=== PATIENT | female | born 1995 | race Caucasian/White ===

== ENCOUNTER 2019-09-22 10:21 | Emergency (ER) | payer BC ==
--- NOTE | 2019-09-22 11:44 | EDM.PDOC ---
ED HPI GENERAL MEDICAL PROBLEM - General Chief Complaint: Head Injury Stated Complaint: HEAD INJURY Time Seen by Provider: 09/22/19 11:08 Source of Information: Reports: Patient, RN Notes Reviewed History Limitations: Reports: No Limitations - History of Present Illness INITIAL COMMENTS - FREE TEXT/NARRATIVE: Patient is a 24-year-old female who presents to the ED with family members for the evaluation of a head injury. Patient notes that around 8:00 last night, she slipped and fell on the ice. She notes that she slipped backwards and hit the back of her head, and her back on the ice. She denies any loss of consciousness or blacking out. There is no bleeding noted as well. She is not complaining of any sort of pain or injuries. Today she is complaining of this inability to not concentrate, or focus, with a lot of fatigue that she does not normally have. She denies any nausea or vomiting or headache, or blurred or double vision. Patient does note some mild lower right rib cage pain, or upper abdominal pain, that is sharp if she bends over. She noticed that this morning directly when she woke up. She did not take any sort of pain medications for this. 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 Denies: Fever, Chills Respiratory: Denies: Shortness of Breath Cardiovascular: Reports: Chest Pain (R lower rib cage/R upper abdominal) GI/Abdominal: Reports: Abdominal Pain (R upper abdominal pain). Denies: Nausea , Vomiting Musculoskeletal: Denies: Neck Pain, Shoulder Pain, Arm Pain, Back Pain Neurological: Denies: Confusion, Headache, Syncope, Trouble Speaking, Difficulty Walking ED EXAM, HEAD INJURY - Physical Exam Exam: See Below Exam Limited By: No Limitations General Appearance: Alert, WD/WN, No Apparent Distress Head: Atraumatic, Normocephalic Nexus Criteria: No: Posterior, Midline Cervical Tenderness, Evidence of Intoxication, Altered Level of Consciousness, Focal Neurological Deficit, Painful Distraction Injuries Eyes: Bilateral Eye: EOMI, Normal Inspection, PERRL Ears: Normal External Exam, Normal Canal, Hearing Grossly Normal, Normal TMs Nose: Normal Inspection Throat/Mouth: Normal Inspection, Normal Lips, Normal Teeth, Normal Gums, Normal Oropharynx, Normal Voice, No Airway Compromise Neck: Non-Tender, Full Range of Motion, Normal Alignment, Normal Inspection Respiratory: No Respiratory Distress, Lungs Clear, Normal Breath Sounds, No Accessory Muscle Use, Chest Non-Tender Cardiovascular: Normal Peripheral Pulses, Regular Rate, Rhythm, No Murmur GI/Abdominal Exam: Normal Bowel Sounds, Soft, Non-Tender, No Distention, No Mass Extremities: Normal Inspection, Normal Capillary Refill 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 As Tested, No Motor/Sensory Deficits, Alert, Normal Mood/Affect, Oriented x 3 Skin: Normal Color, Warm/Dry - [place] Coma Score Best Eye Response ([facility]ria): (4) Open Spontaneously Best Verbal Response ([place]): (5) Oriented Best Motor Response ([place]): (6) Obeys Commands A[place] Total: 15 Course - Vital Signs Last Recorded V/S: Last Vital Signs Temp 97.6 F 09/22/19 10:30 Pulse 81 09/22/19 10:30 Resp 18 09/22/19 10:30 BP 136/76 09/22/19 10:30 Pulse Ox 99 09/22/19 10:30 - Re-Assessments/Exams Free Text/Narrative Re-Assessment/Exam: 09/22/19 11:40 Patient presents to the ED for evaluation of a head injury. Clinically she is suffering from concussion. I believe that the right lower rib cage/upper abdominal pain is more musculoskeletal in nature, it is reproduced on palpation of the lower chest. We will have her follow general conservative recommendations and discharge home at this time. Departure - Departure Time of Disposition: 11:40 Disposition: Home, Self-Care 01 Clinical Impression: Post concussion syndrome, Musculoskeletal strain - Discharge Information *PRESCRIPTION DRUG MONITORING PROGRAM REVIEWED*: No *COPY OF PRESCRIPTION DRUG MONITORING REPORT IN PATIENT YENNY: No Instructions: Post-Concussion Syndrome, [id number] Referrals: Mary Carlin PA [Primary Care Provider] - Forms: ED Department Discharge, ED Return to Work/School Form Additional Instructions: You were evaluated in the ER today regarding your head injury. At this time your symptoms are clinically consistent with concussion, this is a clinical diagnosis, there was no imaging studies done today to determine this, nor are there any imaging studies that can confirm this. Recommend you decrease screen time, and try to rest in a dark quiet room as much as possible over the next few days to help heal the brain. You can take 600 mg ibuprofen or 500 mg Tylenol every 6 hours as needed for further pain relief. Do not take over 4000 mg of Tylenol or 3200 mg of ibuprofen in a 24-hour time span. You should likely be able to return to school without restrictions on 2018. If you feel you are not much better, you will need to be seen for re- evaluation of your symptoms. Please return to the ER at any time if your symptoms change or worsen Sepsis Event Note - Evaluation Sepsis Screening Result: No Definite Risk - Focused Exam Vital Signs: Vital Signs Temp Pulse Resp BP Pulse Ox 09/22/19 10:30 97.6 F 81 18 136/76 99 Date Exam was Performed: 09/22/19 Time Exam was Performed: 11:37
== END 2019-09-22 11:50 | disposition home or self-care (01) ==
LOC: JD.ED 10:21
DX: F07.81 Postconcussional syndrome (principal); T14.8XXA Other injury of unspecified body region, initial encounter; F41.9 Anxiety disorder, unspecified; F32.9 Major depressive disorder, single episode, unspecified; W00.0XXA Fall on same level due to ice and snow, initial encounter
CPT/HCPCS: 99282; 99283